=== PATIENT | female | born 1995 | race Caucasian/White ===

== ENCOUNTER 2021-01-31 08:24 | Emergency (ER) | payer OTHER ==
[~2021-01-31 08:24] MED LIST: NORCO 5-325 TA1 EACH PO
[2021-01-31 09:00] LABS: BASOPHIL 0.7 % (0-2); EOSINOPHIL 1.4 % (0-5); HCT 36.2 % (37.0-47.0); HGB 12.7 g/dl (12.5-16.0); LYMPHOCYTE 20.4 % (15-48); MCH 32.3 pg (25.0-31.0); MCHC 35.1 g/dL (32.0-36.0); MCV 92.1 fL (78.0-100.0); MONOCYTE 7.4 % (0-12); MPV 9.9 fL (6.0-9.5); NEUTROPHIL 69.8 % (41-80); NRBC 0; PLT 261 K/uL (150-400); RBC 3.93 M/uL (4.20-5.40); RDW 11.9 % (11.5-14.0); WBC 7.1 K/uL (4.0-10.5)
[2021-01-31 09:21] LABS: ALBUMIN 3.9 g/dL (3.4-5.0); BILIRUBIN - TOTAL 0.6 mg/dL (0.2-1.0); BUN/CREAT RATIO (CALC) 17.6 RATIO; CREATININE 0.74 mg/dL (0.51-0.95); GLOBULIN (CALCULATION) 2.9 g/dL; POTASSIUM 3.7 mmol/L (3.5-5.1); TOTAL PROTEIN 6.8 g/dL (6.4-8.2)
[2021-01-31 09:41] LABS: BILIRUBIN NEGATIVE (NEGATIVE); BLOOD NEGATIVE Ery/uL (NEGATIVE); CLARITY HAZY (CLEAR); COLOR YELLOW (YELLOW); GLUCOSE (U) NORMAL (NORMAL); LEUKOCYTES NEGATIVE Leu/uL (NEGATIVE); NITRITE NEGATIVE (NEGATIVE); PROTEIN TRACE (LOW) mg/dL (NEGATIVE); SPECIFIC GRAVITY 1.025 (1.001-1.030); UROBILINOGEN 0.2 mg/dL (0.2-1.0); pH 6.5 (5.0-9.0)
[2021-01-31 09:50] LABS: BACTERIA 2+; MUCOUS TRACE
[2021-01-31] MEDS ORDERED: ROBAXIN750 MG PO (11:28)
[2021-01-31] MEDS ORDERED: NAPROXEN500 MG PO (11:28)
== END 2021-01-31 11:50 | disposition home or self-care (01) ==
LOC: FER 08:24
PROVIDERS: Emergency Medicine
DX: S30.1XXA Contusion of abdominal wall, initial encounter (principal); N83.201 Unspecified ovarian cyst, right side; Z98.890 Other specified postprocedural states; V43.02XA Car driver injured in collision with other type car in nontraffic accident, initial encounter; Y92.410 Unspecified street and highway as the place of occurrence of the external cause
CPT/HCPCS: 36415; 80053; 81001; 83690; 84703; 85025; 87088; Q9967